=== PATIENT | female | born 1990 | race Caucasian/White ===

== ENCOUNTER 2017-11-29 14:47 | Emergency (ER) | payer OTHER ==
[2017-11-29] MEDS ORDERED: metroNIDAZOLE 500 MG TAB PO STA (15:21)
[2017-11-29] MEDS ORDERED: cefTRIAXone 250 MG VIAL IM STA (15:21)
[2017-11-29] MEDS ORDERED: AZITHROMYCIN 500 MG TAB PO STA (15:21)
[2017-11-29] MEDS ORDERED: PENICILLIN G BENZATHINE 1,200,000 UNIT/2 ML SYRINGE IM STA (15:48)
[2017-11-29 15:58] LABS: Appearance,Urine Cloudy (Clear); Bacteria,Urine Rare /hpf; Bilirubin,Urine Negative (Negative); Blood,Urine Negative (Negative); Color,Urine Yellow; Glucose,Urine (UA) Negative (Negative); Ketones,Urine Negative (Negative); Leukocyte Esterase,Urine Trace (Negative); Mucus,Urine Rare /hpf; Nitrite,Urine Positive (Negative); PH, Urine 6.5 (5.0-8.0); Protein,Urine Negative (Negative); RBC,Urine 1 /hpf (0-5); Specific Gravity,Urine 1.013 (1.001-1.035); Squamous Epithelial Cell,Urine 2 /hpf (0-4); Urobilinogen,Urine <2.0 mg/dL (<2.0); WBC,Urine 5 /hpf (0-5)
--- NOTE | 2017-11-29 15:59 | ED ---
General Adult HPI - General Chief complaint: Skin/Abscess/Foreign Body Stated complaint: rash Time Seen by Provider: 11/29/17 15:13 Source: patient Mode of arrival: ambulatory Limitations: no limitations - History of Present Illness Initial comments: Lata Bolden is a 27 yo female with no significant past medical history presents the emergency department for evaluation of possible exposure to sexually transmitted infection. Patient states that she recently learned that her significant other has been unfaithful to her and that he recently learned that one of the when he was having sexual relationship with had syphilis. Patient states that initially she did not know what to do, she has been looking up online and learned that it is associated with a possible rash. Patient states that she has noticed a rash on her lower legs over the course of week, she does admit to spending a significant amount of time on the beach and states that initially she thought the rash was bites from sand fleas however after reading about syphilis she be concerned that she may have syphilis. Patient denies any vaginal discharge, malodorous discharge, dysuria or vaginal sores. Patient states that she has looked at her external genitals at home and not noticed any injury or lesions. Patient states that she would like to be tested and treated for sexually transmitted infections. - Related Data Home Medications Medication Instructions Recorded Confirmed No Known Home Medications [No 11/29/17 11/29/17 Known Home Medications] Allergies Allergy/AdvReac Type Severity Reaction Status Date / Time No Known Allergies Allergy Verified 11/29/17 15:08 Review of Systems ROS Statement: Those systems with pertinent positive or pertinent negative responses have been documented in the HPI. ROS Other: All systems not noted in ROS Statement are negative. Past Medical History Past Medical History: No Reported History History of Any Multi-Drug Resistant Organisms: None Reported Past Surgical History: Section Past Psychological History: Anxiety Smoking Status: Current every day smoker Past Alcohol Use History: None Reported Past Drug Use History: None Reported General Exam Limitations: no limitations Course Vital Signs 11/29/17 11/29/17 15:07 16:35 Temperature 98.2 F 98.3 F Pulse Rate 77 78 Respiratory 16 20 Rate Blood Pressure 125/95 132/75 O2 Sat by Pulse 97 99 Oximetry Medical Decision Making - Medical Decision Making She was seen and evaluated, history is obtained from the patient Patient with concern for exposure to syphilis in the past 3 weeks, has no complaints however has noticed red spots on her bilateral legs after visiting the beach External genital exam was unremarkable Genital cultures were obtained Urinalysis obtained Rash on the bilateral lower extremities consistent with bug bites likely related to recent time at the beach and possible sand flea bites. There is no rash on the palms or soles, there is no rash that is consistent with a secondary syphilis. Patient requesting treatment for exposure sexual transmitted infection. Medications were ordered. Patient has not eaten today, she was given a sandwich and drank that she has taken multiple pills. Patient tolerated pills and IM injections without, location Advised the patient that she will be contacted if there are any positive results for her sexual transmitted infection screening. Advised her that her partner needs to be tested and treated as well. Advised that she needs to use barrier protection for the next 7 days after treatment. All questions pertaining to care were answered best my ability patient was discharged home in stable condition. - Lab Data Lab Results 11/29/17 11/29/17 11/29/17 Range/Units 15:40 15:40 15:40 Urine Color Yellow Urine Appearance Cloudy H (Clear) Urine pH 6.5 (5.0-8.0) Ur Specific [place] 1.013 (1.001-1.035) Urine Protein Negative (Negative) Urine Glucose (UA) Negative (Negative) Urine Ketones Negative (Negative) Urine Blood Negative (Negative) Urine Nitrite Positive H (Negative) Urine Bilirubin Negative (Negative) Urine Urobilinogen <2.0 (<2.0) mg/dL Ur Leukocyte Esterase Trace H (Negative) Urine RBC 1 (0-5) /hpf Urine WBC 5 (0-5) /hpf Ur Squamous Epith Cells 2 (0-4) /hpf Urine Bacteria Rare H (None) /hpf Urine Mucus Rare H (None) /hpf Urine HCG, Qual Not Detected (Not Detectd) Trichomonas Ag (Rapid) Negative (Negative) Disposition Clinical Impression: Insect bites, Exposure to sexually transmitted disease (STD) Disposition: HOME SELF-CARE Condition: Good Instructions: Sexually Transmitted Diseases (ED), Insect Bite or Sting (ED) Is patient prescribed a controlled substance at d/c from ED?: No Referrals: None,Stated [Primary Care Provider] - 1-2 days Time of Disposition: 16:16
[2017-11-29 16:46] VITALS: BP 132/75; PULSE 78; RESP 20; TEMP 98.3
[2017-12-01 14:27] LABS: C. trachomatis,PCR Negative (Neg,Equiv); Chlamydia trachomatis Source Urine; N. gonorrhoeae,PCR Negative (Neg,Equiv); Neisseria Source Urine
== END 2017-11-29 16:35 | disposition home or self-care (01) ==
LOC: EC 14:47
DX: S80.862A Insect bite (nonvenomous), left lower leg, initial encounter (principal); S80.861A Insect bite (nonvenomous), right lower leg, initial encounter; Z20.2 Contact with and (suspected) exposure to infections with a predominantly sexual mode of transmission; F41.9 Anxiety disorder, unspecified; F17.200 Nicotine dependence, unspecified, uncomplicated; W57.XXXA Bitten or stung by nonvenomous insect and other nonvenomous arthropods, initial encounter
CPT/HCPCS: 99283; 96372 ×2; 36415; 81001; 81025; 87808; 87491; 87591; 86780; 87070; J0561; J0696; 87205

== ENCOUNTER → 2020-03-12 | Day surgery (SDC) | payer OTHER ==
[2020-03-06 15:08] VITALS: BMI 25.1
[~2020-03-12] MED LIST: DEXAMETHASONE SOD PHOSPHATE 10 MG/ML 1 ML VIAL IV ONE; HEPARIN SODIUM,PORCINE 5,000 UNIT/ML 1 ML VIAL SQ ONE; HYDROcodone/APAP 5-325MG 1 EACH TAB ONE; HYDROcodone/APAP 5-325MG 1 EACH TAB PO ONE; LACTATED RINGERS 1,000 ML IV ONE; LACTATED RINGERS 1,000 ML IV SCH; LIDOCAINE (PF) 10 MG/ML 2 ML VIAL SQ ONE; LIDOCAINE 1% (10MG/ML) FOR IV START INTRADERMA PRN; LIDOCAINE 1% INJ 10MG/ML (20 ML MDV) ONE; MIDAZOLAM 2 MG/2 ML VIAL IV PRN; MIDAZOLAM 2 MG/2 ML VIAL ONE; ONDANSETRON 4 MG/2 ML VIAL IVP ONE; ONDANSETRON 4 MG/2 ML VIAL ONE; PROPOFOL 10 MG/ML 20 ML VIAL IV ONE; Pre Op ABX Message 1 EACH MISC MISCELLANE ONE; SUCCINYLCHOLINE CHLORIDE 100 MG/5 ML SYR IV ONE; fentaNYL (PF) 50 MCG/ML 2 ML AMP IVP PRN; fentaNYL (PF) 50 MCG/ML 2 ML AMP ONE
[2020-03-12 11:18] VITALS: TEMP 97.8
[2020-03-12] MEDS: HYDROmorphone 0.5 MG/0.5 ML SYRINGE IVP PRN ×4 (11:23→11:42)
--- NOTE | 2020-03-12 11:26 | P.OP ---
Date of Procedure: 03/12/20 Preoperative Diagnosis: Bilateral bloody nipple discharge Description of Procedure: The patient is a 29-year-old white female with bilateral bloody nipple discharge. Risk and benefits of duct exploration were discussed with the patient. She wished to proceed. Additionally she had bilateral breast ptosis and the decision was made to do this via crescent mastopexy incisions. In the preoperative area of the location for the incisions was marked. This was approximately 1 cm superior to the superior aspect of the areola bilateral. The patient was taken to the operating room and the right breast was approached initially. The area marked in the preoperative area was de-epithelialized. The breast parenchyma was entered and a portion of tissue was removed under the nipple areolar complex which included the dilated ducts. This was dissected inferiorly onto the chest wall. The wound was well irrigated. Titanium clips were placed. In the right breast approximately 10 cm of tissue was mobilized medially as well as 10 cm of tissue mobilized laterally for total of 20 cm/cm of tissue mobilized. This was brought together using 3-0 Vicryl suture. The skin was then closed using 3-0 Vicryl in the subcuticular tissue followed by 4-0 subcuticular Monocryl and a 4-0 nylon skin suture. The left breast was approached. Instruments were changed appropriately. The skin which had previously been marked was de-epithelialized. The breast parenchyma was entered. The tissue behind the nipple areolar complex including dilated ducts was removed down to the chest wall. The breast tissue was mobilized medially , approximately 18 cm, and laterally for 24 cm. A total of 52 centimeters of tissue was mobilized. The medial and lateral pillars of tissue were secured together using 3-0 Vicryl sutures. Prior to this the cavity had been irrigated and examined for hemostasis. Titanium clips were placed. The subcutaneous tissue was closed using 3-0 Vicryl suture. This was followed by closure of the subcuticular tissue with 4-0 Monocryl and 4-0 nylon skin sutures. All instrument and sponge counts were correct at the end of the case. The patient tolerated the procedure in stable condition.
--- NOTE | 2020-03-12 11:28 | P.DS ---
Providers Attending physician: Laure Hubbard Primary care physician: Cedric Escobar Plan - Discharge Summary Discharge Rx Participant: No New Discharge Prescriptions: No Action No Known Home Medications Discharge Medication List No Known Home Medications 11/29/17 [History] Follow up Appointment(s)/Referral(s): Laure Hubbard MD [STAFF PHYSICIAN] - 1 Week Activity/Diet/Wound Care/Special Instructions: do not drive for 24 hours after discharge, do not drive if taking narcotic pain medication Patient may shower after 48 hours Wear bra at all times Discharge Disposition: HOME SELF-CARE
[2020-03-12 11:49] VITALS: RESP 16
[2020-03-12 12:52] VITALS: BP 121/69; PULSE 66
== END | disposition home or self-care (01) ==
LOC: OR 07:49
PROVIDERS: ATTEND Surgery
DX: N64.52 Nipple discharge (principal); N60.22 Fibroadenosis of left breast; N60.21 Fibroadenosis of right breast; N60.32 Fibrosclerosis of left breast; N60.31 Fibrosclerosis of right breast; N60.82 Other benign mammary dysplasias of left breast; N60.81 Other benign mammary dysplasias of right breast; F17.210 Nicotine dependence, cigarettes, uncomplicated; Z90.89 Acquired absence of other organs; Z98.891 History of uterine scar from previous surgery; Z80.0 Family history of malignant neoplasm of digestive organs
CPT/HCPCS: 81025; 88305; 88307; 19110; J2250; J2001 ×2; J1644; J1100; J2405; J3010; J0330; J2704; J1170

== ENCOUNTER → 2020-03-22 | Outpatient (CLI) | payer OTHER ==
[2020-03-22 14:53] VITALS: BP 105/69; PULSE 71; RESP 18; TEMP 98.2
--- NOTE | 2020-03-22 15:28 | P.PN ---
Subjective Progress Note Date: 03/22/20 Principal diagnosis: Bilateral duct exploration Lata is a 29-year-old white female status post bilateral duct exploration for bloody nipple discharge. This was done on 9819. Right breast: Benign breast with fibrocystic changes Left breast duct exploration: Benign breast fibrocystic changes. Patient is doing well postoperatively with no complaints. Objective - Vital Signs Vital signs: Vital Signs Temp 98.2 F 03/22/20 14:50 Pulse 71 03/22/20 14:50 Resp 18 03/22/20 14:50 BP 105/69 03/22/20 14:50 Pulse Ox 98 03/22/20 14:50 Intake & Output 03/21/20 03/22/20 03/22/20 18:59 06:59 18:59 Weight 79.379 kg - Exam BMI 25.8 - Constitutional General appearance: Present: average body habitus - EENT Eyes: Present: EOMI ENT: Present: hearing grossly normal - Neck Neck: Present: normal ROM - Respiratory Respiratory: bilateral: CTA - Cardiovascular Rhythm: regular Heart sounds: normal: S1, S2 - Psychiatric Psychiatric: Present: A&O x's 3 - Additional findings Additional findings: Incision clean and dry bilateral Assessment and Plan Assessment: Impression: 1. Patient doing well postop bilateral duct exploration Plan: 1. Suture removal 2. Follow-up bilateral mammogram 6 months with physician exam at that time 3. Follow up sooner if any questions or concerns CC: Dr. Luz Devlin
== END | disposition home or self-care (01) ==
LOC: WWCWWP 14:32
PROVIDERS: ATTEND Surgery
DX: Z53.9 Procedure and treatment not carried out, unspecified reason (principal)

== ENCOUNTER 2021-10-22 17:37 | Emergency (ER) | payer OTHER ==
[2021-10-22 17:45] VITALS: TEMP 97.9
[2021-10-22] MEDS ORDERED: SODIUM CHLORIDE 0.9% 1,000 ML IV STA (18:01)
[2021-10-22 18:32] LABS: Basophils # (A) 0.1 k/uL (0-0.2); Basophils % (A) 1 %; Eosinophils # (A) 0.2 k/uL (0-0.7); Eosinophils % (A) 3 %; HCT 42.2 % (34.0-46.0); HGB 13.6 gm/dL (11.4-16.0); Lymphocytes # (A) 2.5 k/uL (1.0-4.8); Lymphocytes % (A) 31 %; MCH 32.3 pg (25.0-35.0); MCHC 32.1 g/dL (31.0-37.0); MCV 100.7 fL (80.0-100.0); Mean Platelet Volume 7.7; Monocytes # (A) 0.4 k/uL (0-1.0); Monocytes % (A) 5 %; Neutrophils # (A) 4.8 k/uL (1.3-7.7); Neutrophils % (A) 59 %; Platelet Count 239 k/uL (150-450); RBC 4.19 m/uL (3.80-5.40); WBC 8.2 k/uL (3.8-10.6)
--- NOTE | 2021-10-22 18:33 | ED ---
Female Urogenital HPI - General Chief complaint: Vaginal Bleeding Stated complaint: 3wks preg, bleeding/cramping Time Seen by Provider: 10/22/21 17:59 Source: patient, RN notes reviewed Mode of arrival: ambulatory Limitations: no limitations - History of Present Illness Initial comments: This is a pleasant 30-year-old female who states her last menstrual period was about a August 29. Patient states she had positive urine and blood test. Patient states she started having some spotting yesterday and now has vaginal bleeding with pelvic cramping. Patient is A0. Patient has a 12-year-old child via . Patient denies any other symptomology. No headache, no fever or chills, no changes in vision or hearing, no sore throat or difficulty with speech, no neck pain, no chest pain or shortness of breath, no abdominal pain, no nausea or vomiting, no changes in urination or bowel movements, no numbness or tingling, no extremity pain, no skin rashes or lesions. MD Complaint: vaginal bleeding, pelvic pain - Related Data Home Medications Medication Instructions Recorded Confirmed Acetaminophen [Tylenol] 1,000 mg PO Q6H PRN 10/22/21 10/22/21 [id number] Acid 1 cap PO DAILY 10/22/21 10/22/21 [-U Capsule (formulary)] Allergies Allergy/AdvReac Type Severity Reaction Status Date / Time No Known Allergies Allergy Verified 10/22/21 19:04 Review of Systems ROS Statement: Those systems with pertinent positive or pertinent negative responses have been documented in the HPI. ROS Other: All systems not noted in ROS Statement are negative. Past Medical History Past Medical History: No Reported History History of Any Multi-Drug Resistant Organisms: None Reported Past Surgical History: Section Past Anesthesia/Blood Transfusion Reactions: No Reported Reaction Past Psychological History: No Psychological Hx Reported Smoking Status: Former smoker Past Alcohol Use History: None Reported Past Drug Use History: None Reported - Past Family History Mother Family Medical History: No Reported History General Exam Limitations: no limitations General appearance: alert, in no apparent distress Head exam: Present: atraumatic, normocephalic, normal inspection Eye exam: Present: normal appearance, PERRL, EOMI. Absent: scleral icterus, conjunctival injection, periorbital swelling ENT exam: Present: normal exam, mucous membranes moist Neck exam: Present: normal inspection. Absent: tenderness, meningismus, lymphadenopathy Respiratory exam: Present: normal lung sounds bilaterally. Absent: respiratory distress, wheezes, rales, rhonchi, stridor Cardiovascular Exam: Present: regular rate, normal rhythm, normal heart sounds. Absent: systolic murmur, diastolic murmur, rubs, gallop, clicks GI/Abdominal exam: Present: soft, normal bowel sounds. Absent: distended, tenderness, guarding, rebound, rigid Extremities exam: Present: normal inspection, full ROM, normal capillary refill. Absent: tenderness, pedal edema, joint swelling, calf tenderness Back exam: Present: normal inspection Neurological exam: Present: alert, oriented X3, CN II-XII intact Psychiatric exam: Present: normal affect, normal mood Skin exam: Present: warm, dry, intact, normal color. Absent: rash Course Vital Signs 10/22/21 17:43 Temperature 97.9 F Pulse Rate 75 Respiratory 16 Rate Blood Pressure 116/58 O2 Sat by Pulse 98 Oximetry - Reevaluation(s) Reevaluation #1: 10/22/21 20:02 Medical record is reviewed Symptoms are improved here in the emergency department Patient is informed of results and questions answered Patient in no distress Medical Decision Making - Medical Decision Making Differential diagnosis: Ectopic , subchorionic hemorrhage, spontaneous miscarriage Rh factor is positive. Serum beta hCG is 74.3 with no comparison value. Still awaiting ultrasound results at 8:02 PM. The case was discussed in detail with ED attending physician. Presentation, findings, treatment plan discussed in detail--Dr. Franco Patient was told to return to the ER for any signs or symptoms worsen. Told to return immediately if any other problems arise. All questions answered. Treatment plan discussed. Patient in agreement Every effort has been made to ensure accuracy of this dictation. However, due to the limitations of electronic medical records and dictation devices, errors in charting still occur. - Lab Data Result diagrams: 10/22/21 18:20 10/22/21 18:20 Lab Results 10/22/21 10/22/21 10/22/21 Range/Units 18:20 18:20 18:20 WBC 8.2 (3.8-10.6) k/uL RBC 4.19 (3.80-5.40) m/uL Hgb 13.6 (11.4-16.0) gm/dL Hct 42.2 (34.0-46.0) % MCV 100.7 H (80.0-100.0) fL MCH 32.3 (25.0-35.0) pg MCHC 32.1 (31.0-37.0) g/dL RDW 12.0 (11.5-15.5) % Plt Count 239 (150-450) k/uL MPV 7.7 Neutrophils % 59 % Lymphocytes % 31 % Monocytes % 5 % Eosinophils % 3 % Basophils % 1 % Neutrophils # 4.8 (1.3-7.7) k/uL Lymphocytes # 2.5 (1.0-4.8) k/uL Monocytes # 0.4 (0-1.0) k/uL Eosinophils # 0.2 (0-0.7) k/uL Basophils # 0.1 (0-0.2) k/uL Sodium 138 (137-145) mmol/L Potassium 4.1 (3.5-5.1) mmol/L Chloride 104 (98-107) mmol/L Carbon Dioxide 25 (22-30) mmol/L Anion Gap 9 mmol/L BUN 12 (7-17) mg/dL Creatinine 0.73 (0.52-1.04) mg/dL Est GFR (CKD-EPI)AfAm >90 (>60 ml/min/1.73 sqM) Est GFR (CKD-EPI)NonAf >90 (>60 ml/min/1.73 sqM) Glucose 69 L (74-99) mg/dL Calcium 8.8 (8.4-10.2) mg/dL Total Bilirubin 0.8 (0.2-1.3) mg/dL AST 25 (14-36) U/L ALT 21 (4-34) U/L Alkaline Phosphatase 47 (38-126) U/L Total Protein 7.6 (6.3-8.2) g/dL Albumin 4.5 (3.5-5.0) g/dL HCG, Quant 74.3 mIU/mL Urine Color Light Yellow Urine Appearance Clear (Clear) Urine pH 6.5 (5.0-8.0) Ur Specific [place] 1.009 (1.001-1.035) Urine Protein Negative (Negative) Urine Glucose (UA) Negative (Negative) Urine Ketones Negative (Negative) Urine Blood Small H (Negative) Urine Nitrite Negative (Negative) Urine Bilirubin Negative (Negative) Urine Urobilinogen <2.0 (<2.0) mg/dL Ur Leukocyte Esterase Negative (Negative) Urine RBC 1 (0-5) /hpf Urine WBC <1 (0-5) /hpf Ur Squamous Epith Cells 2 (0-4) /hpf Blood Type Blood Type Recheck Bld Type Recheck Status Antibody Screen Spec Expiration Date 10/22/21 Range/Units 18:20 WBC (3.8-10.6) k/uL RBC (3.80-5.40) m/uL Hgb (11.4-16.0) gm/dL Hct (34.0-46.0) % MCV (80.0-100.0) fL MCH (25.0-35.0) pg MCHC (31.0-37.0) g/dL RDW (11.5-15.5) % Plt Count (150-450) k/uL MPV Neutrophils % % Lymphocytes % % Monocytes % % Eosinophils % % Basophils % % Neutrophils # (1.3-7.7) k/uL Lymphocytes # (1.0-4.8) k/uL Monocytes # (0-1.0) k/uL Eosinophils # (0-0.7) k/uL Basophils # (0-0.2) k/uL Sodium (137-145) mmol/L Potassium (3.5-5.1) mmol/L Chloride (98-107) mmol/L Carbon Dioxide (22-30) mmol/L Anion Gap mmol/L BUN (7-17) mg/dL Creatinine (0.52-1.04) mg/dL Est GFR (CKD-EPI)AfAm (>60 ml/min/1.73 sqM) Est GFR (CKD-EPI)NonAf (>60 ml/min/1.73 sqM) Glucose (74-99) mg/dL Calcium (8.4-10.2) mg/dL Total Bilirubin (0.2-1.3) mg/dL AST (14-36) U/L ALT (4-34) U/L Alkaline Phosphatase (38-126) U/L Total Protein (6.3-8.2) g/dL Albumin (3.5-5.0) g/dL HCG, Quant mIU/mL Urine Color Urine Appearance (Clear) Urine pH (5.0-8.0) Ur Specific [place] (1.001-1.035) Urine Protein (Negative) Urine Glucose (UA) (Negative) Urine Ketones (Negative) Urine Blood (Negative) Urine Nitrite (Negative) Urine Bilirubin (Negative) Urine Urobilinogen (<2.0) mg/dL Ur Leukocyte Esterase (Negative) Urine RBC (0-5) /hpf Urine WBC (0-5) /hpf Ur Squamous Epith Cells (0-4) /hpf Blood Type B Positive Blood Type Recheck B Pos Bld Type Recheck Status No Antibody Screen NEGATIVE Spec Expiration Date 10/25/20212319 Disposition Clinical Impression: Threatened miscarriage in early Disposition: HOME SELF-CARE Condition: Stable Instructions (If sedation given, give patient instructions): Threatened Miscarriage (ED) Additional Instructions: Follow-up with your regular physician as directed. Return to the ER immediately if any symptoms worsen, new symptoms arise, or any other problems develop. Set up appointment with the [facility] [employer] physician as planned. Call tomorrow. Pelvic rest until symptoms have resolved. Blood test again in 48 hours. results your regular physician and the [facility] physician. Is patient prescribed a controlled substance at d/c from ED?: No Referrals: Cedric Escobar MD [Primary Care Provider] - 10/24/21 Kayy Matthews DO [Doctor of Osteopathic Medicine] - 10/24/21 Time of Disposition: 20:18
[2021-10-22 18:35] LABS: Appearance,Urine Clear (Clear); Bilirubin,Urine Negative (Negative); Blood,Urine Small (Negative); Color,Urine Light Yellow; Glucose,Urine (UA) Negative (Negative); Ketones,Urine Negative (Negative); Leukocyte Esterase,Urine Negative (Negative); Nitrite,Urine Negative (Negative); PH, Urine 6.5 (5.0-8.0); Protein,Urine Negative (Negative); RBC,Urine 1 /hpf (0-5); Specific Gravity,Urine 1.009 (1.001-1.035); Squamous Epithelial Cell,Urine 2 /hpf (0-4); Urobilinogen,Urine <2.0 mg/dL (<2.0); WBC,Urine <1 /hpf (0-5)
[2021-10-22 18:44] LABS: ALT 21 U/L (4-34); AST 25 U/L (14-36); African American GFR (CKD) >90 (>60 ml/min/1.73 sqM); Albumin 4.5 g/dL (3.5-5.0); Alkaline Phosphatase 47 U/L (38-126); Anion Gap 9 mmol/L; Blood Urea Nitrogen 12 mg/dL (7-17); Calcium 8.8 mg/dL (8.4-10.2); Carbon Dioxide 25 mmol/L (22-30); Chloride 104 mmol/L (98-107); Glucose 69 mg/dL (74-99); Non-African American GFR(CKD) >90 (>60 ml/min/1.73 sqM); Potassium 4.1 mmol/L (3.5-5.1); Sodium 138 mmol/L (137-145); Total Bilirubin 0.8 mg/dL (0.2-1.3); Total Protein 7.6 g/dL (6.3-8.2)
[2021-10-22 18:59] LABS: HCG,Quantitative Serum 74.3 mIU/mL
--- NOTE | 2021-10-22 20:03 | US ---
EXAMINATION TYPE: Transabdominal DATE OF EXAM: 10/22/2021 7:19 PM COMPARISON: NONE CLINICAL HISTORY: vaginal bleeding, . Patient states she is 3 weeks and is having he jmaes vaginal bleeding x 2 days. EXAM PERFORMED: Transabdominal (TA) EXAM MEASUREMENTS: GESTATIONAL AGE / DATING Physician Established: Not yet established Dates by LMP: LMP unknown Dates by First Scan: No previous this is first scan Dates by Current Scan for: No IUP seen at this time MATERNAL ANATOMY Uterus: 9.2 x 4.4 x 5.5 cm Right Ovary: 2.8 x 2.4 x 2.6 cm Left Ovary: 2.6 x 2.5 x 2.4 cm Presence of free fluid: no Beta HcG (if available): 74 Endometrium measuring 1.1 cm. Limited visualization of the adnexa and ovaries. IMPRESSION: No intrauterine seen at this time, cannot exclude ectopic. Correlation with beta hCG, histo ry and physical examination recommended.
[2021-10-22 20:33] VITALS: BP 117/66; PULSE 72; RESP 18
== END 2021-10-22 20:35 | disposition home or self-care (01) ==
LOC: EC 17:37
DX: O20.0 Threatened abortion (principal); Z3A.01 Less than 8 weeks gestation of pregnancy; Z87.891 Personal history of nicotine dependence
CPT/HCPCS: 36415; 76801; 80053; 81001; 84702; 85025; 86850; 86900; 86901; 96360; 96361; 99284

== ENCOUNTER 2024-05-22 17:48 | Emergency (ER) | payer OTHER ==
[2024-05-22 18:00] VITALS: RESP 16
--- NOTE | 2024-05-22 19:33 | ED ---
Abdominal Pain HPI - General Source: patient, RN notes reviewed Mode of arrival: ambulatory Limitations: no limitations <eJss Fish - Last Filed: 05/22/24 19:32> <Macie Dumont - Last Filed: 05/23/24 03:55> - General Chief Complaint: Abdominal Pain Stated Complaint: LT SIDE PAIN Time Seen by Provider: 05/22/24 19:32 - History of Present Illness Initial Comments: Quick note: 33 year old female presenting to the ER with a chief complaint of left-sided abdominal pain. Patient admits to diarrhea. No fevers. (Jess Fish) 33-year-old female with chief complaint of abdominal pain. Patient is having left upper quadrant pain. Has been ongoing for about 6 days. It is increasing in intensity. States that the pain is consistent throughout the day. She reports some recent constipation, her last bowel movement was today, however states that it was liquidy. Patient did take some stool softeners prior to the bowel movement, thinking that she was constipated. Some nausea no vomiting. No blood in the stool. No fevers. No dysuria or hematuria. No chest pain or difficulty breathing. (Macie Dumont) - Related Data Home Medications Medication Instructions Recorded Confirmed Acetaminophen [Tylenol] 1,000 mg PO Q6H PRN 10/22/21 10/22/21 [id number] Acid 1 cap PO DAILY 10/22/21 10/22/21 [-U Capsule (formulary)] Previous Rx's Medication Instructions Recorded Cephalexin [Keflex] 500 mg PO Q12HR 7 Days #14 cap 05/22/24 Allergies Allergy/AdvReac Type Severity Reaction Status Date / Time No Known Allergies Allergy Verified 05/22/24 17:59 Review of Systems ROS Other: All systems not noted in ROS Statement are negative. <Jess Fish - Last Filed: 05/22/24 19:32> ROS Other: All systems not noted in ROS Statement are negative. <Macie Dumont - Last Filed: 05/23/24 03:55> ROS Statement: Those systems with pertinent positive or pertinent negative responses have been documented in the HPI. Past Medical History Past Medical History: No Reported History History of Any Multi-Drug Resistant Organisms: None Reported Past Surgical History: Section Past Anesthesia/Blood Transfusion Reactions: No Reported Reaction Past Psychological History: No Psychological Hx Reported Smoking Status: Former smoker Past Alcohol Use History: None Reported Past Drug Use History: None Reported - Past Family History Mother Family Medical History: No Reported History <Jess Fish - Last Filed: 05/22/24 19:32> General Exam Limitations: no limitations <Jess Fish - Last Filed: 05/22/24 19:32> General appearance: alert, in no apparent distress Head exam: Present: atraumatic, normocephalic, normal inspection Eye exam: Present: normal appearance, EOMI Neck exam: Present: normal inspection. Absent: meningismus Respiratory exam: Present: normal lung sounds bilaterally. Absent: respiratory distress, wheezes, rales, rhonchi, stridor Cardiovascular Exam: Present: regular rate, normal rhythm, normal heart sounds. Absent: systolic murmur, diastolic murmur, rubs, gallop, clicks GI/Abdominal exam: Present: soft, tenderness. Absent: distended, guarding, rebound, rigid Neurological exam: Present: alert, oriented X3 Psychiatric exam: Present: normal affect, normal mood Skin exam: Present: warm, dry <Macie Dumont - Last Filed: 05/23/24 03:55> - General Exam Comments Initial Comments: Visual Physical Exam Vital signs reviewed General: Well-appearing, nontoxic, no acute distress. Head: Normocephalic, atraumatic Eyes: PERRLA, EOMI ENT: Airway patent Chest: Nonlabored breathing Skin: No visual rash, normal skin tone Neuro: Alert and oriented 3 Musculoskeletal: No gross abnormalities (Jess Fish) Course Vital Signs 05/22/24 05/22/24 17:58 23:01 Temperature 99.1 F 98.7 F Pulse Rate 86 73 Respiratory 16 16 Rate Blood Pressure 103/62 133/59 O2 Sat by Pulse 100 100 Oximetry Medical Decision Making <Jess Fish - Last Filed: 05/22/24 19:32> - Lab Data Result diagrams: 05/22/24 20:32 05/22/24 20:32 <Macie Dumont - Last Filed: 05/23/24 03:55> - Medical Decision Making I performed the quick note portion of this chart. Electronically signed by Jess Fish PA-C (Jess Fish) Was pt. sent in by a medical professional or institution ([facility], [facility], urgent care, hospital, or fpc...) When possible be specific @ -No Did you speak to anyone other than the patient for history (EMS, parent, family, police, friend...)? What history was obtained from this source @ -No Did you review nursing and triage notes (agree or disagree)? Why? @ -I reviewed and agree with nursing and triage notes Were old charts reviewed (outside hosp., previous admission, EMS record, old EKG, old radiological studies, urgent care reports/EKG's, fpc records)? Report findings @ -No old charts were reviewed Differential Diagnosis (chest pain, altered mental status, abdominal pain women, abdominal pain men, vaginal bleeding, weakness, fever, dyspnea, syncope, headache, dizziness, GI bleed, back pain, seizure, CVA, palpatations, mental health, musculoskeletal)? @ -MDM Differential Abdominal Pain Women: Appendicitis, Cholecystitis, diverticulosis, ischemic bowel, pancreatitis, hepatitis, UTI, gastroenteritis, AAA, incarcerated hernia, bowel obstruction, constipation, inflammatory bowel, hepatitis, peptic ulcer disease, splenic infarction, perforated viscus, vulvitis, ovarian torsion, PID, kidney stone, placenta abruption... This is not meant to be an all-inclusive list EKG interpreted by me (3pts min.). @ -As above X-rays interpreted by me (1pt min.). @ -KUB x-ray shows nonobstructive bowel gas pattern and no evidence of free air. There is a moderate colonic stool burden CT interpreted by me (1pt min.). @ -None done U/S interpreted by me (1pt. min.). @ -None done What testing was considered but not performed or refused? (CT, X-rays, U/S, labs)? Why? @ -None What meds were considered but not given or refused? Why? @ -None Did you discuss the management of the patient with other professionals (professionals i.e. [facility], [facility] [employer] [facility], lab, RT, psych nurse, social services designee, shipping helper, teacher, animal services officer, case work aide)? Give summary @ -No Was smoking cessation discussed for >3mins.? @ -No Was critical care preformed (if so, how long)? @ -No Were there social determinants of health that impacted care today? How? (Homelessness, low income, unemployed, alcoholism, drug addiction, transportation, low edu. Level, literacy, decrease access to med. care, long term, rehab)? @ -No Was there de-escalation of care discussed even if they declined (Discuss DNR or withdrawal of care, Hospice)? DNR status @ -No What co-morbidities impacted this encounter? (DM, HTN, Smoking, COPD, CAD, Cancer, CVA, ARF, Chemo, Hep., AIDS, mental health diagnosis, sleep apnea, morbid obesity)? @ -None Was patient admitted / discharged? Hospital course, mention meds given and route, prescriptions, significant lab abnormalities, going to OR and other pertinent info. @ -33-year-old female presenting with chief complaint of left upper quadrant pain. History and physical examination are conducted. Lab work shows no leukocytosis or anemia. CMP is essentially unremarkable. Urine shows evidence of UTI with small blood large leukocytes and positive nitrites, patient will be treated with Keflex. Negative hCG. KUB x-ray shows evidence of moderate stool burden. Patient is educated on today's findings. Provided with magnesium citrate for constipation, educated on use of magnesium citrate. Follow-up with PCP. Report back to ER with any new or worsening symptoms. Discussed return parameters and answered all questions. Patient conveyed verbal understanding and agreed to the plan. I discussed this case in detail with my attending Dr. Rivas Undiagnosed new problem with uncertain prognosis? @ -No Drug Therapy requiring intensive monitoring for toxicity (Heparin, Nitro, Insulin, Cardizem)? @ -No Were any procedures done? @ -No Diagnosis/symptom? @ -Constipation, UTI Acute, or Chronic, or Acute on Chronic? @ -Acute Uncomplicated (without systemic symptoms) or Complicated (systemic symptoms)? @ -Uncomplicated Side effects of treatment? @ -No Exacerbation, Progression, or Severe Exacerbation? @ -No Poses a threat to life or bodily function? How? (Chest pain, [place], [place], pneumonia, PE, COPD, DKA, ARF, appy, cholecystitis, CVA, Diverticulitis, Homicidal, Suicidal, threat to staff... and all critical care pts) @ -Low likelihood (Macie Dumont) - Lab Data Lab Results 05/22/24 05/22/24 05/22/24 Range/Units 20:32 20:32 20:32 WBC 10.1 (3.8-10.6) k/uL RBC 4.14 (3.80-5.40) m/uL Hgb 12.7 (11.4-16.0) gm/dL Hct 39.9 (34.0-46.0) % MCV 96.3 (80.0-100.0) fL MCH 30.6 (25.0-35.0) pg MCHC 31.8 (31.0-37.0) g/dL RDW 12.2 (11.5-15.5) % Plt Count 326 (150-450) k/uL MPV 7.6 Neutrophils % 68 % Lymphocytes % 22 % Monocytes % 6 % Eosinophils % 2 % Basophils % 0 % Neutrophils # 6.8 (1.3-7.7) k/uL Lymphocytes # 2.2 (1.0-4.8) k/uL Monocytes # 0.6 (0-1.0) k/uL Eosinophils # 0.2 (0-0.7) k/uL Basophils # 0.0 (0-0.2) k/uL Sodium (137-145) mmol/L Potassium (3.5-5.1) mmol/L Chloride (98-107) mmol/L Carbon Dioxide (22-30) mmol/L Anion Gap mmol/L BUN (7-17) mg/dL Creatinine (0.52-1.04) mg/dL Est GFR (CKD-EPI)AfAm (>60 ml/min/1.73 sqM) Est GFR (CKD-EPI)NonAf (>60 ml/min/1.73 sqM) Glucose (74-99) mg/dL Calcium (8.4-10.2) mg/dL Total Bilirubin (0.2-1.3) mg/dL AST (14-36) U/L ALT (4-34) U/L Alkaline Phosphatase (38-126) U/L Total Protein (6.3-8.2) g/dL Albumin (3.5-5.0) g/dL Amylase (30-110) U/L Lipase (23-300) U/L Urine Color Yellow Urine Appearance Cloudy H (Clear) Urine pH 6.0 (5.0-8.0) Ur Specific [place] 1.016 (1.001-1.035) Urine Protein Trace H (Negative) Urine Glucose (UA) Negative (Negative) Urine Ketones Negative (Negative) Urine Blood Small H (Negative) Urine Nitrite Positive H (Negative) Urine Bilirubin Negative (Negative) Urine Urobilinogen <2.0 (<2.0) mg/dL Ur Leukocyte Esterase Large H (Negative) Urine RBC 5 (0-5) /hpf Urine WBC 19 H (0-5) /hpf Ur Squamous Epith Cells <1 (0-4) /hpf Urine Bacteria Many H (None) /hpf Urine Mucus Many H (None) /hpf Urine HCG, Qual Not Detected (Not Detectd) 05/22/24 Range/Units 20:32 WBC (3.8-10.6) k/uL RBC (3.80-5.40) m/uL Hgb (11.4-16.0) gm/dL Hct (34.0-46.0) % MCV (80.0-100.0) fL MCH (25.0-35.0) pg MCHC (31.0-37.0) g/dL RDW (11.5-15.5) % Plt Count (150-450) k/uL MPV Neutrophils % % Lymphocytes % % Monocytes % % Eosinophils % % Basophils % % Neutrophils # (1.3-7.7) k/uL Lymphocytes # (1.0-4.8) k/uL Monocytes # (0-1.0) k/uL Eosinophils # (0-0.7) k/uL Basophils # (0-0.2) k/uL Sodium 136 L (137-145) mmol/L Potassium 4.2 (3.5-5.1) mmol/L Chloride 100 (98-107) mmol/L Carbon Dioxide 27 (22-30) mmol/L Anion Gap 9 mmol/L BUN 9 (7-17) mg/dL Creatinine 0.60 (0.52-1.04) mg/dL Est GFR (CKD-EPI)AfAm >90 (>60 ml/min/1.73 sqM) Est GFR (CKD-EPI)NonAf >90 (>60 ml/min/1.73 sqM) Glucose 91 (74-99) mg/dL Calcium 8.8 (8.4-10.2) mg/dL Total Bilirubin 0.7 (0.2-1.3) mg/dL AST 17 (14-36) U/L ALT 21 (4-34) U/L Alkaline Phosphatase 60 (38-126) U/L Total Protein 7.5 (6.3-8.2) g/dL Albumin 4.4 (3.5-5.0) g/dL Amylase 48 (30-110) U/L Lipase 69 (23-300) U/L Urine Color Urine Appearance (Clear) Urine pH (5.0-8.0) Ur Specific [place] (1.001-1.035) Urine Protein (Negative) Urine Glucose (UA) (Negative) Urine Ketones (Negative) Urine Blood (Negative) Urine Nitrite (Negative) Urine Bilirubin (Negative) Urine Urobilinogen (<2.0) mg/dL Ur Leukocyte Esterase (Negative) Urine RBC (0-5) /hpf Urine WBC (0-5) /hpf Ur Squamous Epith Cells (0-4) /hpf Urine Bacteria (None) /hpf Urine Mucus (None) /hpf Urine HCG, Qual (Not Detectd) Disposition <Jess Fish - Last Filed: 05/22/24 19:32> Is patient prescribed a controlled substance at d/c from ED?: No Time of Disposition: 22:30 <Macie Dumont - Last Filed: 05/23/24 03:55> Clinical Impression: UTI (urinary tract infection), Constipation Disposition: HOME SELF-CARE Condition: Good Instructions (If sedation given, give patient instructions): Constipation (ED), Urinary Tract Infection in Women (ED), High Fiber Diet (ED) Additional Instructions: Follow-up with PCP. Report back to ER with any new or worsening symptoms. Take medication as advised. Prescriptions: Cephalexin [Keflex] 500 mg PO Q12HR 7 Days #14 cap Referrals: None,Stated [Primary Care Provider] - 1-2 days Roberto Prado MD [STAFF PHYSICIAN] - 1-2 days
[2024-05-22] MEDS: SODIUM CHLORIDE 0.9% 1,000 ML IV ONE (20:55)
[2024-05-22] MEDS: KETOROLAC 15 MG/ML 1 ML VIAL IVP STA (20:56)
[2024-05-22 21:06] LABS: Basophils % (A) 0 %; Eosinophils # (A) 0.2 k/uL (0-0.7); Eosinophils % (A) 2 %; HCT 39.9 % (34.0-46.0); HGB 12.7 gm/dL (11.4-16.0); Lymphocytes # (A) 2.2 k/uL (1.0-4.8); Lymphocytes % (A) 22 %; MCH 30.6 pg (25.0-35.0); MCHC 31.8 g/dL (31.0-37.0); MCV 96.3 fL (80.0-100.0); Mean Platelet Volume 7.6; Monocytes # (A) 0.6 k/uL (0-1.0); Monocytes % (A) 6 %; Neutrophils # (A) 6.8 k/uL (1.3-7.7); Neutrophils % (A) 68 %; Platelet Count 326 k/uL (150-450); RBC 4.14 m/uL (3.80-5.40); RDW 12.2 % (11.5-15.5); WBC 10.1 k/uL (3.8-10.6)
[2024-05-22 21:19] LABS: ALT 21 U/L (4-34); AST 17 U/L (14-36); African American GFR (CKD) >90 (>60 ml/min/1.73 sqM); Albumin 4.4 g/dL (3.5-5.0); Alkaline Phosphatase 60 U/L (38-126); Amylase 48 U/L (30-110); Anion Gap 9 mmol/L; Blood Urea Nitrogen 9 mg/dL (7-17); Calcium 8.8 mg/dL (8.4-10.2); Carbon Dioxide 27 mmol/L (22-30); Chloride 100 mmol/L (98-107); Glucose 91 mg/dL (74-99); Lipase 69 U/L (23-300); Non-African American GFR(CKD) >90 (>60 ml/min/1.73 sqM); Potassium 4.2 mmol/L (3.5-5.1); Sodium 136 mmol/L (137-145); Total Bilirubin 0.7 mg/dL (0.2-1.3); Total Protein 7.5 g/dL (6.3-8.2)
[2024-05-22 21:28] LABS: Appearance,Urine Cloudy (Clear); Bacteria,Urine Many /hpf; Bilirubin,Urine Negative (Negative); Blood,Urine Small (Negative); Color,Urine Yellow; Glucose,Urine (UA) Negative (Negative); Ketones,Urine Negative (Negative); Leukocyte Esterase,Urine Large (Negative); Mucus,Urine Many /hpf; Nitrite,Urine Positive (Negative); Protein,Urine Trace (Negative); RBC,Urine 5 /hpf (0-5); Specific Gravity,Urine 1.016 (1.001-1.035); Squamous Epithelial Cell,Urine <1 /hpf (0-4); Urobilinogen,Urine <2.0 mg/dL (<2.0); WBC,Urine 19 /hpf (0-5)
--- NOTE | 2024-05-22 22:08 | XR ---
EXAMINATION TYPE: XR K[facility] DATE OF EXAM: 05/22/2024 9:47 PM COMPARISON: None available. CLINICAL INDICATION: Female, 33 years old with history of pain; [facility] TECHNIQUE: One radiographic view of the abdomen was obtained. FINDINGS: Nonobstructive bowel gas pattern. No evidence of free air. Partially visualized lower lung zones. No acute pathology. Moderate colonic stool burden. No acute osseous abnormality. No obvious re nal calculi. Dextroconvex lumbosacral spine curvature centered at L2-L3. IMPRESSION: Nonobstructive bowel gas pattern. No evidence of free air. [facility], , 05/22/2024 10:06 PM
[2024-05-22] MEDS: MORPHINE SULFATE 2 MG/ML SYRINGE IVP STA (22:39)
[2024-05-22] MEDS: MAGNESIUM CITRATE 296 ML BOTTLE PO ONE (23:00)
[2024-05-22 23:03] VITALS: BP 133/59; PULSE 73; TEMP 98.7
== END 2024-05-22 23:01 | disposition home or self-care (01) ==
LOC: EC 17:48
DX: N39.0 Urinary tract infection, site not specified (principal); K59.00 Constipation, unspecified; Z87.891 Personal history of nicotine dependence
CPT/HCPCS: 99284; 96374; 96375; 96361; 36415; 80053; 82150; 83690; 85025; 81001; 81025; 87086; 87077; 87186; 74018; J2270; J1885